=== PATIENT | male | born 1995 | race Caucasian/White ===

== ENCOUNTER 2018-09-05 19:09 | Emergency (ER) | payer OTHER ==
[~2018-09-05] VITALS: Ht 175.3 cm; Wt 63.5 kg
[2018-09-05 19:15] VITALS: BP 131/76
[2018-09-05] MEDS ORDERED: NACL 0.9% 1,000 ML IV ONE (19:55)
[2018-09-05] MEDS ORDERED: ONDANSETRON 4 MG/2 ML VIAL IVP ONE (19:55)
[2018-09-05 20:12] LABS: BASOPHILS % (AUTO) 0.4 % (0.0-2.0); EOSINOPHILS % (AUTO) 0.5 % (0.0-4.0); HEMATOCRIT 44.1 % (36-52); HEMOGLOBIN 14.6 g/dL (12.0-18.0); LYMPHOCYTES # (AUTO) 2.7 K/uL (2.0-11.5); LYMPHOCYTES % (AUTO) 25.6 % (20.5-51.1); MEAN CORPUSCULAR HEMOGLOBIN 29 pg (27-31); MEAN CORPUSCULAR HGB CONC 33 g/dL (33-37); MEAN CORPUSCULAR VOLUME 86.9 fL (80-94); MONOCYTES # (AUTO) 0.7 K/uL (0.8-1.0); NEUTROPHILS # (AUTO) 7.1 K/uL (1.8-7.7); NEUTROPHILS % (AUTO) 66.5 % (42.2-75.2); PLATELET COUNT (AUTO) 295 K/uL (140-450); RED BLOOD CELL COUNT(AUTO) 5.07 MIL/uL (4.20-6.10); RED CELL DISTRIBUTION WIDTH 13.7 % (11.6-13.7); WHITE BLOOD COUNT (AUTO) 10.6 K/uL (4.8-10.8)
[2018-09-05 20:29] LABS: ALBUMIN 4.1 g/dL (3.4-5.0); ANION GAP 12.1 (8-16); CARBON DIOXIDE 27.7 mmol/L (21-32); POTASSIUM 4.8 mmol/L (3.5-5.1); TOTAL BILIRUBIN 0.5 mg/dL (0.0-1.0)
[2018-09-05 20:38] LABS: APPEARANCE,URINE CLEAR (CLEAR); BILIRUBIN,URINE NEGATIVE (NEGATIVE); BLOOD, URINE NEGATIVE (NEGATIVE); COLOR,URINE YELLOW (YELLOW); LEUKOCYTE ESTERASE ,URINE NEGATIVE (NEGATIVE); NITRITE, URINE NEGATIVE (NEGATIVE); PH,URINE 6.5 (5.0-9.0); UGLUCOSE NEGATIVE (NEGATIVE)
[2018-09-05 20:47] LABS: BARBITURATE, URINE NEG. ng/ml (NEG <=200); BENZODIAZEPINE, URINE NEG. ng/mL (NEG <=200); CANNABINOID, URINE POS. ng/mL (NEG <=50); COCAINE, URINE NEG. ng/mL (NEG <=300); OPIATE, URINE NEG. ng/mL (NEG <=2000); PHENCYCLIDINE SCREEN,URINE NEG. ng/mL (NEG <=25)
[2018-09-05 21:19] VITALS: BP 119/85
== END 2018-09-05 21:19 | disposition home or self-care (01) ==
LOC: MED 19:09
DX: J30.9 Allergic rhinitis, unspecified (principal); F41.9 Anxiety disorder, unspecified
CPT/HCPCS: 36415; 80053; 80305; 81003; 83690; 85025; 96374; 99283; G0482; J2405; J7030; 81002

== ENCOUNTER 2018-11-05 18:42 | Emergency (ER) | payer OTHER ==
[~2018-11-05] VITALS: Ht 170.2 cm; Wt 66.2 kg
[2018-11-05 19:03] VITALS: BP 125/76
[2018-11-05] MEDS ORDERED: LORazepam 1 MG TAB PO ONE (20:15)
[2018-11-05 21:26] VITALS: BP 128/78
== END 2018-11-05 21:26 | disposition home or self-care (01) ==
LOC: MED 18:42
DX: F41.9 Anxiety disorder, unspecified (principal)
CPT/HCPCS: 99284

== ENCOUNTER 2020-02-10 12:08 | Emergency (ER) | payer OTHER ==
[~2020-02-10] VITALS: Ht 177.8 cm; Wt 72.6 kg
--- NOTE | 2020-02-10 12:11 | NUR ---
Patient transferred to bed 4 via wheelchair by tech. RN evaluating patient at bedside.
[2020-02-10 12:20] VITALS: BP 122/67
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
--- NOTE | 2020-02-10 12:34 | NUR ---
Dr. Zhu is evaluating the patient at bedside.
[2020-02-10] MEDS ORDERED: CEPHALEXIN 500 MG CAP PO ONE (12:40)
[2020-02-10] MEDS ORDERED: SULFAMETH/TRIMETH DS 800/160MG 1 TAB PO ONE (12:40)
--- NOTE | 2020-02-10 12:47 | NUR ---
X-Ray at bedside.
--- NOTE | 2020-02-10 13:38 | NUR ---
RESTING WITH EYES CLOSED, VISIBLE RISE AND FALL OF THE CHEST. WILL CONTINUE TO MONITOR. VSS
--- NOTE | 2020-02-10 14:03 | NUR ---
APPLIED RENE WRAP TO LEFT ANKLE WITHOUT ANY ISSUES. PT DEMONSTRATED PROPER USE OF CRUTCHES
--- NOTE | 2020-02-10 14:05 | NUR ---
+PULSES, +CMS AFTER APPLICATION OF RENE WRAP TO LT ANKLE
[2020-02-10 14:11] VITALS: BP 122/67
--- NOTE | 2020-02-10 14:12 | NUR ---
Patient discharged with v/s stable. Written and verbal after care instructions given and explained. Patient alert, oriented and verbalized understanding of instructions. Ambulatory with steady gait. All questions addressed prior to discharge. ID band removed. Patient advised to follow up with PMD. Rx of KEFLEX 500MG, MOTRIN 800MG, AND BACTRIM 800MG given. Patient educated on indication of medication including possible reaction and side effects. Opportunity to ask questions provided and answered.
== END 2020-02-10 14:12 | disposition home or self-care (01) ==
LOC: MED 12:08
DX: L03.116 Cellulitis of left lower limb (principal); F17.200 Nicotine dependence, unspecified, uncomplicated; F12.90 Cannabis use, unspecified, uncomplicated
CPT/HCPCS: 73610; 99283; Q0092